=== PATIENT | male | born 2000 | race American Indian/Alaskan Native ===

== ENCOUNTER 2019-01-08 21:28 | Emergency (ER) | payer SELFPAY ==
[~2019-01-08] VITALS: Ht 177.8 cm; Wt 68.0 kg
[2019-01-09 02:15] VITALS: BP 110/75
== END 2019-01-09 02:15 | disposition home or self-care (01) ==
LOC: ER 21:28
DX: R21 Rash and other nonspecific skin eruption (principal); F17.200 Nicotine dependence, unspecified, uncomplicated; Z59.0 Homelessness
CPT/HCPCS: 99282